=== PATIENT | male | born 1960 | race Caucasian/White ===

== ENCOUNTER → 2022-03-18 12:31 | Outpatient (BNVA) | payer OTHER, SELFPAY | PROVIDERS: PCP Physician Assistant; Referring Provider Internal Medicine; Visit Provider Internal Medicine | DX: M05.20 Rheumatoid vasculitis with rheumatoid arthritis of unspecified site (principal); Z98.1 Arthrodesis status; R76.8 Other specified abnormal immunological findings in serum; M25.50 Pain in unspecified joint; Z11.59 Encounter for screening for other viral diseases; Z11.1 Encounter for screening for respiratory tuberculosis | CPT/HCPCS: 36415; 72040; 80053; 85025; 85651; 86140; 86200; 86480; 86704; 86803; 87340; 99204 ==

== ENCOUNTER → 2022-09-09 13:24 | Outpatient (BNVA) | payer OTHER, SELFPAY | PROVIDERS: PCP Physician Assistant; Visit Provider Internal Medicine | DX: R76.8 Other specified abnormal immunological findings in serum (principal); M25.50 Pain in unspecified joint | CPT/HCPCS: 99213 ==

== ENCOUNTER → 2023-01-19 13:07 | Outpatient (BNVA) | payer OTHER, SELFPAY | PROVIDERS: PCP Physician Assistant; Visit Provider Internal Medicine | DX: R76.8 Other specified abnormal immunological findings in serum (principal); M25.50 Pain in unspecified joint; M54.50 Low back pain, unspecified | CPT/HCPCS: 99214 ==

== ENCOUNTER → 2023-05-16 13:09 | Outpatient (BNVA) | payer OTHER, SELFPAY | PROVIDERS: PCP Physician Assistant; Visit Provider Internal Medicine | DX: M05.9 Rheumatoid arthritis with rheumatoid factor, unspecified; M54.50 Low back pain, unspecified; M16.12 Unilateral primary osteoarthritis, left hip | CPT/HCPCS: 99214 ==

== ENCOUNTER → 2023-11-14 09:12 | Outpatient (BNVA) | payer OTHER, SELFPAY | PROVIDERS: PCP Physician Assistant; Visit Provider Internal Medicine Rheumatology | DX: Z79.899 Other long term (current) drug therapy (principal); M05.79 Rheumatoid arthritis with rheumatoid factor of multiple sites without organ or systems involvement; Z71.85 Encounter for immunization safety counseling | CPT/HCPCS: 36415; 80076; 82565; 85025; 86140; 99214 ==

== ENCOUNTER → 2024-03-20 08:50 | Outpatient (BNVA) | payer OTHER, SELFPAY | PROVIDERS: PCP Physician Assistant; Visit Provider Internal Medicine Rheumatology | DX: M05.79 Rheumatoid arthritis with rheumatoid factor of multiple sites without organ or systems involvement (principal); Z79.899 Other long term (current) drug therapy; Z71.85 Encounter for immunization safety counseling; Z11.1 Encounter for screening for respiratory tuberculosis; Z11.59 Encounter for screening for other viral diseases | CPT/HCPCS: 99214 ==